=== PATIENT | male | born 1995 | race Caucasian/White ===

== ENCOUNTER 2023-06-15 08:11 | Outpatient (CLI) | payer OTHER, SELFPAY | END 2023-06-15 08:12 | disposition home or self-care (01) | PROVIDERS: PCP Family Medicine; Visit Provider Family Medicine | DX: Z00.00 Encounter for general adult medical examination without abnormal findings (principal); C86.6 Primary cutaneous CD30-positive T-cell proliferations; Z13.6 Encounter for screening for cardiovascular disorders; Z13.29 Encounter for screening for other suspected endocrine disorder | CPT/HCPCS: 80048; 80061; 80076; 84443; 85025 ==